=== PATIENT | male | born 1975 | race Two or more races ===

== ENCOUNTER 2017-06-10 07:35 | Day surgery (SDC) | payer MEDICAID ==
[~2017-06-10] VITALS: Ht 172.7 cm; Wt 98.0 kg
[2017-06-10] VITALS (7 sets, daily range): BP systolic 128–174; BP diastolic 76–107; PULSE 72–79; RESP 18–25; Ht 172.7 cm; Wt 98.0 kg
[2017-06-10] MEDS ORDERED: FENTAnyl 50 MCG/ML VIAL ONE (08:51)
[2017-06-10] MEDS ORDERED: LIDOCAINE 2% (SDV) 5 ML INJ ONE (08:51)
[2017-06-10] MEDS ORDERED: PROPOFOL 20 ML ONE (08:51)
[2017-06-10] MEDS ORDERED: MIDAZOLAM 1 MG/ML 2 ML INJ ONE (08:51)
[2017-06-10] MEDS ORDERED: OMEP1CAP PO (08:56)
[2017-06-10] MEDS ORDERED: HYDROmorphONE (0.2 MG/ML) 10ML SYG IV PRN (09:00)
[2017-06-10] MEDS ORDERED: FENTAnyl 50 MCG/ML VIAL IV PRN (09:00)
[2017-06-10] MEDS ORDERED: DIPHENHYDRAMINE 50 MG INJ IV PRN (09:00)
[2017-06-10] MEDS ORDERED: MEPERIDINE 25 MG INJ IV PRN (09:00)
[2017-06-10] MEDS ORDERED: OXYCODONE/ACETAMINOPHEN (5/325) TAB PO PRN ×2 (09:00)
[2017-06-10] MEDS ORDERED: PROCHLORPERAZINE 10 MG INJ IV PRN (09:00)
[2017-06-10] MEDS ORDERED: ONDANSETRON 4 MG INJ IV PRN (09:00)
[2017-06-10] MEDS ORDERED: CEFAZOLIN 2 GM/50 ML (PMX) 50 ML IVPB SCH (09:30)
[2017-06-10] MEDS ORDERED: BUPIVACAINE 0.5%/EPI (SDV) 10 ML INJ ONE (09:50)
--- NOTE | 2017-06-10 10:33 | HPN ---
Date/Time of Note Date/Time of Note DATE: 06/10/17 TIME: 10:29 Interval H&P Admission Note Pt. seen H&P reviewed: Systems changes noted below BP elevated and has not taken his meds (has not fill them x 4 days) Anesthesia is ok doing this under straight local only. Patient understands his higher risks associated with elevated and very adamant to proceed with surgery since he has significant pain at the site. YAO VINCENT MD Jun 10, 2017 10:33
[2017-06-10] MEDS ORDERED: CEFAZOLIN 1 GM INJ ONE (10:34)
[2017-06-10] MEDS ORDERED: LIDOCAINE 1% (MDV) 20 ML INJ ONE (10:49)
[2017-06-10] MEDS ORDERED: ONDANSETRON 4 MG INJ ONE (10:52)
[2017-06-10] MEDS ORDERED: METOCLOPRAMIDE 10 MG INJ ONE (10:52)
[2017-06-10] MEDS ORDERED: KETOROLAC 30 MG INJ ONE (11:26)
[2017-06-10] MEDS ORDERED: LACTATED RINGER'S 1,000 ML IV SCH (11:30)
[2017-06-10] MEDS ORDERED: IBUPROFEN 600 MG TAB PO PRN (11:30)
[2017-06-10] MEDS ORDERED: ACETAMINOPHEN 325 MG TAB PO PRN (11:30)
--- NOTE | 2017-06-10 11:43 | OPR ---
Date/Time of Note Date/Time of Note DATE: 06/10/17 TIME: 11:30 Operative Report Procedure Date: Jun 10, 2017 Preoperative Diagnosis Left back lesion Postoperative Diagnosis Left back lesion, 5.5 cm Operation Performed 1. Excision of left lower back lesion, 5.5 cm 2. Bilateral dermal-cutaneous flaps 3. Local anesthetic injection, [id number] Surgeon: YAO VINCENT MD [employer] Operator: TIFFANY DUMONT NP Anesthesia Type: MAC, other (Local) Estimated Blood Loss: 0 - 10 ml's Transfusion Required: no Specimens Lesion Grafts/Implants: none Tubes/Drains None Pt Condition Post Procedure: stable Disposition: PACU Indications Growing lesion left lower back that symptomatic with pain Risks include but are not limited to bleeding, infection, abscess, seroma, wound formation, chronic pain, need for re-operations or further surgeries, NV, stroke, PE, DVT, pneumonia, organ failures, or even . Procedure Description Patient was brought and placed supine in the operating table and then placed in lateral decubitus position with all pressure points well-padded. He received preoperative antibiotics. He was prepped and draped sterilely. Timeout was performed. Local anesthetic was injected at the surgical site. Transverse elliptical incision was made encompassing the lesion fully and the incision was extended into the subcutaneous tissue. Tissue was sent to pathology and full. Dermal cutaneous flaps were created superiorly and inferiorly to be able to close the defect sufficiently. Wound was thoroughly irrigated and made completely hemostatic. Dermal interrupted 2-0 Vicryl sutures were placed to close the space followed by 2-0 Prolene vertical mattress sutures for strength and full closure of the skin. Gauze and Tegaderm were placed. Patient was recovered and taken back to PACU in stable condition and all counts were correct at the end of the operation 2. Copies To: CC: JUAN DOUGLAS MD; ARIA DOUGLAS MD, SAMUEL MD Jun 10, 2017 11:40
== END 2017-06-10 12:32 | disposition home or self-care (01) ==
LOC: SDS 07:35
PROVIDERS: ATTEND Surgery
DX: L72.0 Epidermal cyst (principal); K21.9 Gastro-esophageal reflux disease without esophagitis; E78.5 Hyperlipidemia, unspecified; I10 Essential (primary) hypertension; Z88.5 Allergy status to narcotic agent
CPT/HCPCS: 14000; 88307; J0690; J1885; J2250; J2405; J2765; J3010; Z7512; Z7610